=== PATIENT | female | born 1940 | race Two or more races ===

== ENCOUNTER 2023-09-13 18:27 | Emergency (ER) | payer OTHER ==
[~2023-09-13] VITALS: Ht 160 cm; Wt 59.0 kg
[2023-09-13] MEDS ORDERED: CLOPIDOGREL BIS75 MG PO (19:09)
[2023-09-13] MEDS ORDERED: GABAPENTIN100 M2 PO (19:09)
[2023-09-13] MEDS ORDERED: EZETIMIBE10 MG PO (19:09)
[2023-09-13] MEDS ORDERED: LOSARTAN POTAS100 MG PO (19:09)
[2023-09-13] MEDS ORDERED: DONEPEZIL HCL10 MG PO (19:09)
[2023-09-13] MEDS ORDERED: SYNTHROID125 MCG PO (19:09)
[2023-09-13 19:44] LABS: MEAN CELL VOLUME 85.1 fL (80.00-100.00); MEAN CORPUSCULAR HEMOGLOBIN 28.4 pg (27.00-32.0); MEAN CORPUSCULAR HGB CONC 33.4 g/dl (32.0-36.0); PLATELET COUNT 225 K/uL (150-450); RED BLOOD COUNT 4.94 M/uL (4.00-6.00); RED CELL DISTRIBUTION WIDTH 13.2 % (11.5-14.5)
[2023-09-13 21:04] LABS: PH,URINE 7.5 (5.0-8.0); URINE APPEARANCE Clear; URINE BILIRRUBIN Negative (NEGATIVE); URINE BLOOD Negative; URINE COLOR Yellow; URINE GLUCOSE Negative (NEGATIVE); URINE LEUKOCYTE Trace; URINE NITRATE Negative; URINE PROTEIN Negative (NEGATIVE)
[2023-09-13 21:08] LABS: URINE BACTERIA 270.7 uL (0.0-1933); URINE EPITHELIAL CELLS 31.3 uL (0.0-38.8); URINE RBC 6.1 uL (0.0-20.8); URINE WBC 17.9 uL (0.0-23.2)
== END 2023-09-13 21:19 | disposition home or self-care (01) ==
LOC: ER 18:27
PROVIDERS: Emergency Medicine
DX: M54.50 Low back pain, unspecified (principal); I10 Essential (primary) hypertension; E03.8 Other specified hypothyroidism; Z88.0 Allergy status to penicillin